=== PATIENT | male | born 1995 | race Caucasian/White ===

== ENCOUNTER 2018-08-23 16:31 | Outpatient (CLI) | payer OTHER ==
[2012-11-23 21:00] VITALS: TEMP 99.2
[2015-09-16 18:36] VITALS: BMI 19.2
== END 2018-08-23 16:32 | disposition home or self-care (01) ==
LOC: LAB 16:31
PROVIDERS: ATTEND Internal Medicine Rheumatology
DX: M06.4 Inflammatory polyarthropathy (principal)
CPT/HCPCS: 36415; 82550; 82553; 86038; 86140; 86200